=== PATIENT | male | born 1980 | race Caucasian/White ===

== ENCOUNTER 2016-11-30 15:13 | Emergency (ER) | payer SELFPAY ==
[~2016-11-30] VITALS: Ht 167.6 cm; Wt 80.0 kg
[2016-11-30 15:17] VITALS: BP 137/87; PULSE 96; RESP 20; TEMP 98.1; O2SAT 97
--- NOTE | 2016-11-30 17:23 | PD ---
HPI Chief Complaint: Skin Problem Time Seen by Provider: 17:23 Travel History International Travel<30 days: No Contact w/Intl Traveler<30days: No Traveled to known affect area: No History of Present Illness HPI 36-year-old male presents to the emergency department for evaluation of left groin abscess. Patient states that 2 days ago he noticed a bump to his left inner upper groin. States that it has gotten larger and more painful over the past 2 days. States that he now has an area of redness surrounding the bump. States that he had subjective fever last night. Denies any discharge or drainage from the site. Denies any scrotal pain, chills, nausea, vomiting, dysuria. Denies any medical conditions. No other complaints. PFSH Past Medical History Respiratory: Yes (asthma) Social History Alcohol Use: Yes Tobacco Use: Yes Allergies-Medications (Allergen,Severity, Reaction): Coded Allergies: No Known Allergies (Unverified , 11/30/16) Reported Meds & Prescriptions Reported Meds & Active Scripts Active Keflex (Cephalexin) 500 Mg Cap 500 Mg PO Q6H 10 Days Bactrim DS (Sulfamethoxazole-Trimethoprim) 800-160 Mg Tab 1 Tab PO BID 10 Days Tramadol (Tramadol HCl) 50 Mg Tab 50 Mg PO Q6H PRN Review of Systems Except as stated in HPI: all other systems reviewed are Neg Physical Exam Narrative GENERAL: Well-nourished and well-developed pleasant male patient in no acute distress who is nontoxic appearing. SKIN: Warm and dry. There is a 4 cm in diameter raised area of fluctuance and tenderness to palpation with a surrounding area of erythema approximately 15 cm down the left thigh. HEAD: Normocephalic and atraumatic. EYES: No injection, drainage, or hyphema noted. PERRLA. EOMI. ENT: No nasal drainage noted. Oropharynx is clear. NECK: Supple and the trachea is midline. CARDIOVASCULAR: Regular rate and rhythm. RESPIRATORY: Breath sounds are equal bilaterally with no accessory muscle use, wheezing, rhonchi, or crackles. GENITOURINARY: Circumcised. Testes descended bilaterally without evidence of rotation. No tenderness to palpation of the scrotum, no erythema or swelling of the scrotum. Groin abscess as described above. No urethral discharge. Performed in the presence of Juan JOYNER. MUSCULOSKELETAL: No obvious deformities, swelling, cyanosis, or ecchymosis is present throughout the upper and lower extremities. Patient has full range of motion without any signs of neurovascular compromise. NEUROLOGICAL: Awake, alert, and oriented. Normal speech and gait. Cranial nerves are grossly intact. Data Data Last Documented VS Vital Signs Date Time Temp Pulse Resp B/P Pulse Ox O2 Delivery O2 Flow Rate FiO2 11/30/16 15:17 98.1 96 20 137/87 97 Room Air Orders Wound Culture And Gram Stain (11/30/16 17:51) [facility] Medical Decision Making Medical Screen Exam Complete: Yes Emergency Medical Condition: Yes Differential Diagnosis Groin abscess versus cyst versus cellulitis Narrative Course 36-year-old male presents to the emergency department for evaluation of left groin abscess. Patient is afebrile, vital signs are stable. He has an abscess to his left groin with a surrounding area of cellulitis. The scrotum is not involved. I&D is performed, see procedure narrative. Patient is prescribed Keflex, Bactrim and pain medication. Discussed proper wound care techniques and when to return to the emergency department. Advised to follow-up with his PCP. Patient verbalizes understanding and agreement with treatment plan. Procedures Procedure Narrative After the risks and benefits were discussed the following procedure was performed: INCISION AND DRAINAGE OF ABSCESS: The area was prepped and was sterilely draped. A subcutaneous wheal of 1 % Xylocaine with epinephrine with a total number 8 mL was used to anesthetize the area. The area was properly anesthetized. A number 11 scalpel was used to make a 1.5 -cm incision across the area of the abscess. Purulence was expelled. Cultures were obtained. The abscess was drained an irrigated with normal saline. Quarter inch iodoform packing was placed in the wound. Sterile dressing applied. Patient advised to have packing removed in two days. Diagnosis Primary Impression: Groin abscess Additional Impression: Cellulitis Qualified Code: L03.116 - Cellulitis of left lower extremity Referrals: Primary Care Physician Patient Instructions: Abscess (ED), Cellulitis (ED), General Instructions Additional Instructions: Keep area clean and dry. Have packing removed in 2 days. Take medications as prescribed with food and a full glass of water. Do not take tramadol with alcohol or while driving. Follow-up with your Primary Care Physician. Return to the ED for any acute worsening of symptoms. Med/Other Pt SpecificInfo: Prescription(s) given Scripts Cephalexin (Keflex)500 Mg [id number] Mg PO Q6H 10 Days Ref 0 Prov:Hung Canas MD 11/30/16 Sulfamethoxazole-Trimethoprim (Bactrim DS)800-160 Mg Tab1 Tab PO BID 10 Days Ref 0 Prov:Hung Canas MD 11/30/16 Tramadol 50 Mg Tab50 Mg PO Q6H PRN (PAIN GREATER THAN 6) #12 TAB Ref 0 Prov:Hung Canas MD 11/30/16 Disposition: 01 DISCHARGE HOME Condition: Stable Maribell Gresham Nov 30, 2016 17:23
[2016-11-30] MEDS ORDERED: BACT800T5 PO (17:48)
[2016-11-30] MEDS ORDERED: TRAM50TA PO (17:48)
[2016-11-30] MEDS ORDERED: CEPH-460 PO (17:48)
== END 2016-11-30 18:03 | disposition home or self-care (01) ==
LOC: EDBD → NEPB 15:13
DX: L02.214 Cutaneous abscess of groin (principal); B95.62 Methicillin resistant Staphylococcus aureus infection as the cause of diseases classified elsewhere
CPT/HCPCS: 10061; 86403; 87070; 87186

== ENCOUNTER 2016-12-02 08:57 | Inpatient (IN) | payer SELFPAY ==
[2016-12-02] VITALS (8 sets, daily range): BP systolic 101–136; BP diastolic 58–79; PULSE 76–100; RESP 15–20; TEMP 98–98.3; O2SAT 95–100
[~2016-12-02] VITALS: Ht 170.2 cm; Wt 80.4 kg
[~2016-12-02 08:57] MED LIST: BACT800T5 PO; CEPH-460 PO; TRAM50TA PO
[2016-12-02] MEDS ORDERED: SODIUM CHLOR 0.9% 1000 ML INJ 1,000 ML IV ONE (09:30)
[2016-12-02] MEDS ORDERED: VANCOMYCIN INJ 1,250 MG in SODIUM CHLOR 0.9% 250 ML INJ 250 ML IV ONE (09:30)
[2016-12-02 09:56] LABS: AUTOMATED NEUTROPHIL # 7.4 TH/MM3 (1.8-7.7); EOSINOPHIL # 0.1 TH/MM3 (0-0.4); EOSINOPHIL % 0.7 % (0.0-4.0); HEMATOCRIT 35.4 % (39.0-51.0); HEMO FLAGS DIFF FINAL; LYMPH % 15.6 % (9.0-44.0); LYMPHOCYTE # 1.6 TH/MM3 (1.0-4.8); MEAN CORPUSCULAR HEMOGLOBIN 33.7 PG (27.0-34.0); MEAN CORPUSCULAR HGB CONC 34.4 % (32.0-36.0); MONO % 10.7 % (0.0-8.0); PLATELET COUNT 111 TH/MM3 (150-450); RED BLOOD COUNT 3.62 MIL/MM3 (4.50-5.90); RED CELL DISTRIBUTION WIDTH 13.9 % (11.6-17.2); WHITE BLOOD COUNT 10.1 TH/MM3 (4.0-11.0)
[2016-12-02 10:06] LABS: ALKALINE PHOSPHATASE 121 U/L (45-117)
[2016-12-02 10:20] LABS: ALT (GPT) 50 U/L (12-78); ANION GAP 5 MEQ/L (5-15); AST (GOT) 38 U/L (15-37); BICARBONATE 27.7 MEQ/L (21.0-32.0); BLOOD UREA NITROGEN 8 MG/DL (7-18); CHLORIDE 98 MEQ/L (98-107); GLOMERULAR FILTRATION RATE 86 ML/MIN (>89); SODIUM (NA) 131 MEQ/L (136-145)
[2016-12-02 10:21] LABS: POTASSIUM 3.9 MEQ/L (3.5-5.1)
--- NOTE | 2016-12-02 11:06 | RADRPT ---
EXAM DATE/TIME: 12/02/2016 09:55 [place] COMPARISON: No previous studies available for comparison. INDICATIONS : Left leg fluid collection. MEDICAL HISTORY : Asthma. SURGICAL HISTORY : ENCOUNTER: Initial ACUITY: 1 day PAIN SCORE: 8/10 LOCATION: Left groin. AREA EVALUATED: Left medial groin. FINDINGS: Sonographic evaluation of the left groin and upper thigh/buttocks shows diffuse edema involving the s ubcutaneous tissues. No abscess is observed. A wound is noted within the upper medial thigh/perineum. CONCLUSION: Diffuse edema with a wound but no abscess observed. Corwin Cook Jr., MD on December 02, 2016 at 11:00 Board Certified Radiologist. This report was verified electronically.
--- NOTE | 2016-12-02 11:26 | PD ---
HPI Chief Complaint: Skin Problem Time Seen by Provider: 09:17 Travel History International Travel<30 days: No Contact w/Intl Traveler<30days: No Traveled to known affect area: No History of Present Illness HPI This is a 36-year-old male who presents to the emergency department with a wound on his left groin that started as an abscess 4 days ago and has been increasing in size, constant, associated with pain and discomfort. He denies any fevers or chills. He was seen in the emergency department 2 days ago and had an incision and drainage performed. Cultures at that time grew MRSA. The patient [place] and has fresh and salt water exposure. He's been on Keflex and Bactrim for the past 2 days but he feels like the cellulitis is worsening. PFSH Past Medical History Medical History: Denies Significant Hx Diminished Hearing: No Respiratory: Yes (asthma) Past Surgical History Surgical History: No Previous Surgery Social History Alcohol Use: Yes Tobacco Use: Yes Substance Use: No Allergies-Medications (Allergen,Severity, Reaction): Coded Allergies: No Known Allergies (Unverified , 12/02/16) Reported Meds & Prescriptions Reported Meds & Active Scripts Active Keflex (Cephalexin) 500 Mg Cap 500 Mg PO Q6H 10 Days Bactrim DS (Sulfamethoxazole-Trimethoprim) 800-160 Mg Tab 1 Tab PO BID 10 Days Tramadol (Tramadol HCl) 50 Mg Tab 50 Mg PO Q6H PRN Review of Systems Except as stated in HPI: all other systems reviewed are Neg Physical Exam Narrative GENERAL:Well appearing, no acute distress SKIN: 16 x 10 cm area of erythema, induration and warmth in the left groin extending towards the perineum with tender lymphadenopathy in the left femoral region. Abscess packing was removed and there is some scant purulent drainage HEAD: Atraumatic. Normocephalic. EYES: Pupils equal and round. No injection or drainage. ENT: Moist mucous membranes NECK: Trachea midline. CARDIOVASCULAR: Regular rate and rhythm. No murmur appreciated. RESPIRATORY: Clear to auscultation. Breath sounds equal bilaterally. GASTROINTESTINAL: Abdomen soft, non-tender, nondistended. MUSCULOSKELETAL: No obvious deformities. NEUROLOGICAL: Awake and alert. No obvious cranial nerve deficits. Moving all extremities. PSYCHIATRIC: Appropriate mood and affect; insight and judgment normal. Data Data Last Documented VS Vital Signs Date Time Temp Pulse Resp B/P Pulse Ox O2 Delivery O2 Flow Rate FiO2 12/02/16 09:16 16 12/02/16 09:16 100 Room Air 12/02/16 08:59 98.0 100 136/79 Orders Complete Blood Count With Diff (12/02/16 09:22) Comprehensive Metabolic Panel (12/02/16 09:22) Lactic Acid Sepsis Protocol (12/02/16 09:22) Blood Culture (12/02/16 09:22) Wound Culture And Gram Stain (12/02/16 09:22) Blood Glucose (12/02/16 09:22) Ecg Monitoring (12/02/16 09:22) Iv Access Insert/Monitor (12/02/16:22) Oximetry (12/02/16:22) Oxygen Administration (12/02/16 09:22) Vancomycin Inj (Vancomycin Inj) (12/02/16 09:30) Sodium Chlor 0.9% 1000 Ml Inj (Ns 1000 M (12/02/16 09:30) Us Leg Soft Tissue (12/02/16 ) Labs Laboratory Tests Test 12/02/16 09:20 White Blood Count 10.1 TH/MM3 Red Blood Count 3.62 MIL/MM3 Hemoglobin 12.2 GM/DL Hematocrit 35.4 % Mean Corpuscular Volume 98.0 FL Mean Corpuscular Hemoglobin 33.7 PG Mean Corpuscular Hemoglobin 34.4 % Concent Red Cell Distribution Width 13.9 % Platelet Count 111 TH/MM3 Mean Platelet Volume 8.3 FL Neutrophils (%) (Auto) 73.0 % Lymphocytes (%) (Auto) 15.6 % Monocytes (%) (Auto) 10.7 % Eosinophils (%) (Auto) 0.7 % Basophils (%) (Auto) 0.0 % Neutrophils # (Auto) 7.4 TH/MM3 Lymphocytes # (Auto) 1.6 TH/MM3 Monocytes # (Auto) 1.1 TH/MM3 Eosinophils # (Auto) 0.1 TH/MM3 Basophils # (Auto) 0.0 TH/MM3 CBC Comment DIFF FINAL Differential Comment Sodium Level 131 MEQ/L Potassium Level 3.9 MEQ/L Chloride Level 98 MEQ/L Carbon Dioxide Level 27.7 MEQ/L Anion Gap 5 MEQ/L Blood Urea Nitrogen 8 MG/DL Creatinine 0.98 MG/DL Estimat Glomerular Filtration 86 ML/MIN Rate Random Glucose 119 MG/DL Lactic Acid Level 0.9 mmol/L Calcium Level 8.5 MG/DL Total Bilirubin 1.0 MG/DL Aspartate Amino Transf 38 U/L (AST/SGOT) Alanine Aminotransferase 50 U/L (ALT/SGPT) Alkaline Phosphatase 121 U/L Total Protein 8.1 GM/DL Albumin 3.2 GM/DL MDM Medical Decision Making Medical Screen Exam Complete: Yes Emergency Medical Condition: Yes Interpretation(s) Afebrile, mild tachycardia No leukocytosis Mild anemia Thrombocytopenia Electrolytes are reassuring Lactic acidosis 0.9 Differential Diagnosis Cellulitis, sepsis, abscess, Earl's gangrene Narrative Course This is a 36-year-old male who presents to the emergency department with cellulitis and abscess formation in his left groin which was incised and drained 2 days ago. He returns today because his cellulitis is worsening despite taking antibiotics. He has no fever and no leukocytosis however his cellulitis appears to be spreading per his description despite antibiotic therapy. Wound cultures grew MRSA on visit. Patient was placed on a monitor and an IV was established. Labs were obtained and he was given a dose of IV vancomycin. He will be admitted for cellulitis in the setting of failed outpatient therapy. Diagnosis Primary Impression: Cellulitis Qualified Code: L03.116 - Cellulitis of left lower extremity Admitting Information Admitting Physician Requests: Admit Lesly Barboza MD Dec 02, 2016 11:26
[2016-12-02] MEDS ORDERED: ACETAMINOPHEN/HYDROcodone 325 MG/5 MG TAB PO ONE (11:30)
[2016-12-02] MEDS ORDERED: BISACODYL 10 MG SUPP PR PRN (11:45)
[2016-12-02] MEDS ORDERED: PROCHLORPERAZINE 25 MG SUPP PR PRN (11:45)
[2016-12-02] MEDS ORDERED: SODIUM CHLORIDE 0.9% FLUSH 5 ML FLUSH FLUSH PRN (11:45)
[2016-12-02] MEDS ORDERED: ONDANSETRON HCL 4 MG/2 ML VIAL IVP PRN (11:45)
[2016-12-02] MEDS ORDERED: Vancomycin Consult Pharmacy 1 EA OTHER SCH (11:45)
[2016-12-02] MEDS ORDERED: ACETAMINOPHEN 325 MG TAB PO PRN (11:45)
[2016-12-02] MEDS ORDERED: MAGNESIUM HYDROXIDE SUSP 30 ML CUP PO PRN (11:45)
[2016-12-02] MEDS: ENOXAPARIN SODIUM 40 MG/0.4 ML SYRINGE SQ SCH (12:38)
[2016-12-02] MEDS ORDERED: NALOXONE HCL 0.4 MG/ML AMP IV PRN (15:30)
[2016-12-02] MEDS ORDERED: ACETAMINOPHEN/HYDROcodone 325 MG/5 MG TAB PO PRN (16:00)
--- NOTE | 2016-12-02 16:04 | HHI.HP ---
[facility] Non-Staff Admission Diagnosis cellulitis Diagnoses: Chief Complaint: cellulitis getting worse dispite treatment Travel History International Travel<30 Days: No Contact w/Intl Traveler <30 Da: No Traveled to Known Affected Are: No History of Present Illness 36-year-old male otherwise healthy who presents to the emergency department with a wound on his left groin that started as an abscess 4 days ago and has been increasing in size, constant, associated with pain and discomfort. He denies any fevers or chills. He was seen in the emergency department 2 days ago and had an incision and drainage performed. Cultures at that time grew MRSA. The patient [place] and has fresh and salt water exposure. He's been on Keflex and Bactrim for the past 2 days but he feels like the cellulitis is worsening. Says redness, swelling and pain is increasing progressively. No feevr or chills. He was compliants taking antibiotics and pain meds. Review of Systems 12 system ROS reviewed and negative except as mentioned in HPI Past Family Social History Past Medical History Healthy, no chronic medical problems, no diabetes Has a h/o pancreatitis likely EtOH related. Past Surgical History None Reported Medications Reported Meds & Active Scripts Active Keflex (Cephalexin) 500 Mg Cap 500 Mg PO Q6H 10 Days Bactrim DS (Sulfamethoxazole-Trimethoprim) 800-160 Mg Tab 1 Tab PO BID 10 Days Tramadol (Tramadol HCl) 50 Mg Tab 50 Mg PO Q6H PRN Current Medications Vancomycin HCl 1250 mg/Sodium Chloride 262.5 ml @ 250 mls/hr ONCE ONCE IV Last administered on 12/02/16 10:01; Start 12/02/16 at 09:30; Stop 12/02/16 at 10:32; Status DC Sodium Chloride (NS 1000 ml Inj) 1,000 ml @ 999 mls/hr BOLUS ONCE IV Last administered on 12/02/16 09:41; Start 12/02/16 at 09:30; Stop 12/02/16 at 10:30 ; Status DC Acetaminophen/ Hydrocodone Bitart ([place] 5-325 Mg) 1 tab ONCE ONCE PO Last administered on 12/02/16t 11:45; Start 12/02/16 at 11:30; Stop 12/02/16 at 11:31 ; Status DC IV Flush (NS Flush) 2 ml UNSCH PRN FLUSH FLUSH AFTER USING IV ACCESS; Start at 11:45 IV Flush (NS Flush) 2 ml BID FLUSH ; Start 12/02/16 at 21:00 Acetaminophen (Tylenol) 650 mg Q4H PRN PO TEMP > 100.4 Last administered on t 14:58; Start 12/02/16 at 11:45 Ondansetron HCl (Zofran Inj) 4 mg Q6H PRN IVP NAUSEA OR VOMITING; Start at 11:45 Prochlorperazine (Compazine Supp) 25 mg Q12H PRN NM NAUSEA OR VOMITING; Start 12/02/16 at 11:45 Bisacodyl (Dulcolax Supp) 10 mg DAILY PRN NM CONSTIPATION; Start 12/02/16 at 11 :45 Magnesium Hydroxide (Milk Of Magnesia Liq) 30 ml Q12H PRN PO CONSTIPATION; Start 12/02/16 at 11:45 Zolpidem Tartrate (Ambien) 5 mg HS PRN PO INSOMNIA; Start 12/02/16 at 11:45 Enoxaparin Sodium 40 mg 40 mg Q24H SQ ; Start 12/02/16 at 13:00 Vancomycin HCl 1000 mg/Sodium Chloride 250 ml @ 250 mls/hr Q12H IV ; Start at 22:00; Stop 12/02/16 at 22:00; Status DC Pharmacy Profile Note 0 ml @ 0 mls/hr UNSCH OTHER ; Start 12/02/16 at 11:45 Vancomycin HCl/ Sodium Chloride (Vancomycin Inj/ NS 250 ml Inj) 262.5 ml @ 250 mls/hr Q12H IV ; Start 12/02/16 at 21:00 Miscellaneous Information SPECIFIC LAB TO BE DRAWN:VANCOMYCIN TROUGH DATE TO... ONCE ONCE XX ; Start 12/04/16 at 08:45; Stop 12/04/16 at 08:46 Acetaminophen/ Hydrocodone Bitart ([place] 5-325 Mg) 1 tab Q4H PRN PO PAIN SCALE 3 TO 5; Start 12/02/16 at 16:00 Acetaminophen/ Hydrocodone Bitart ([place] 10-325 Mg) 1 tab Q4H PRN PO PAIN SCALE 6 TO 10; Start 12/02/16 at 16:00 Hydromorphone HCl (Dilaudid Pf Inj) 1 mg Q3H PRN IV BREAKTHROUGH PAIN; Start at 15:30 Naloxone HCl (Narcan Inj) 0.4 mg UNSCH PRN IV SEE LABEL COMMENTS; Start at 15:30 Allergies: Coded Allergies: No Known Allergies (Unverified , 12/02/16) Family History healthy family Social History EtOH use 6 beers daily Physical Exam Vital Signs Vital Signs Date Time Temp Pulse Resp B/P Pulse Ox O2 Delivery O2 Flow Rate FiO2 12/02/16 13:45 98.3 76 20 108/67 98 12/02/16 11:49 98 21 12/02/16 11:46 87 15 120/78 100 Room Air 12/02/16 09:16 16 12/02/16 09:16 100 Room Air 12/02/16 09:16 16 100 Room Air 12/02/16 08:59 98.0 100 20 136/79 97 Room Air Physical Exam GENERAL: This is a young male well-nourished, well-developed patient, in no apparent distress. SKIN: Extended Erythema and edema on left groin extending mid inner thigh, warm and painful to palpation. Cool and dry. HEAD: Atraumatic. Normocephalic. No temporal or scalp tenderness. EYES: Pupils equal round and reactive. Extraocular motions intact. No scleral icterus. No injection or drainage. ENT: Nose without bleeding, purulent drainage or septal hematoma. Throat without erythema, tonsillar hypertrophy or exudate. Uvula midline. Airway patent. NECK: Trachea midline. No JVD or lymphadenopathy. Supple, nontender, no meningeal signs. CARDIOVASCULAR: Regular rate and rhythm without murmurs, gallops, or rubs. RESPIRATORY: Clear to auscultation. Breath sounds equal bilaterally. No wheezes , rales, or rhonchi. GASTROINTESTINAL: Abdomen soft, non-tender, nondistended. No hepato-splenomegaly , or palpable masses. No guarding. MUSCULOSKELETAL: Extremities without clubbing, cyanosis, or edema. No joint tenderness, effusion, or edema noted. No calf tenderness. Negative Homans sign bilaterally. NEUROLOGICAL: Awake and alert. Cranial nerves II through XII intact. Motor and sensory grossly within normal limits. Five out of 5 muscle strength in all muscle groups. Normal speech. Laboratory Laboratory Tests Test 12/02/16 09:20 White Blood Count 10.1 Red Blood Count 3.62 Hemoglobin 12.2 Hematocrit 35.4 Mean Corpuscular Volume 98.0 Mean Corpuscular Hemoglobin 33.7 Mean Corpuscular Hemoglobin 34.4 Concent Red Cell Distribution Width 13.9 Platelet Count 111 Mean Platelet Volume 8.3 Neutrophils (%) (Auto) 73.0 Lymphocytes (%) (Auto) 15.6 Monocytes (%) (Auto) 10.7 Eosinophils (%) (Auto) 0.7 Basophils (%) (Auto) 0.0 Neutrophils # (Auto) 7.4 Lymphocytes # (Auto) 1.6 Monocytes # (Auto) 1.1 Eosinophils # (Auto) 0.1 Basophils # (Auto) 0.0 CBC Comment DIFF FINAL Differential Comment Sodium Level 131 Potassium Level 3.9 Chloride Level 98 Carbon Dioxide Level 27.7 Anion Gap 5 Blood Urea Nitrogen 8 Creatinine 0.98 Estimat Glomerular Filtration 86 Rate Random Glucose 119 Lactic Acid Level 0.9 Calcium Level 8.5 Total Bilirubin 1.0 Aspartate Amino Transf 38 (AST/SGOT) Alanine Aminotransferase 50 (ALT/SGPT) Alkaline Phosphatase 121 Total Protein 8.1 Albumin 3.2 Date/Time Procedure Status Source Growth 12/02/16 09:25 Aerobic Blood Culture Received Blood Peripheral Pending 12/02/16 09:25 Anaerobic Blood Culture Received Blood Peripheral Pending 12/02/16 09:20 Gram Stain Received Wound Groin Pending 12/02/16 09:20 Wound Culture Received Wound Groin Pending Result Diagram: 12/02/1620 12/02/1620 Imaging Last Impressions Lower Extremity Ultrasound 12/02/16 0000 Signed Impressions: Service Date/Time: Friday, December 02, 2016 09:55 - CONCLUSION: Diffuse edema with a wound but no abscess observed. Corwin Cook Jr., MD Assessment and Plan Assessment and Plan 36 yo male with cellulitis left innerthigh/groin Worsening cellulitis of the left groin/inner thigh with failed OP treatment with keflex and bactrim. Wound cultures 11/30 with MRSA Repeat wound cultures today Start IV vancomycin. Pharmacy consult for vanco Pain meds per pain scale. Monitor VS Tachycardic, but doesn't meet sepsis criteria DVT ppx with lovenox Code Status full Discussed Condition With patient. nurse, ED physician Physician Certification 2 Midnight Certification Type: Admission for Inpatient Services Order for Inpatient Services The services are ordered in accordance with Medicare regulations or non- Medicare payer requirements, as applicable. In the case of services not specified as inpatient-only, they are appropriately provided as inpatient services in accordance with the 2-midnight benchmark. Estimated LOS (days): 3 days is the estimated time the patient will need to remain in the hospital, assuming treatment plan goals are met and no additional complications. Post-Hospital Plan: Home Annia Murray MD Dec 02, 2016 16:04
[2016-12-02] MEDS: ACETAMINOPHEN/HYDROcodone 325 MG/10 MG TAB PO PRN ×2 (16:05→20:30)
[2016-12-02] MEDS: VANCOMYCIN INJ 1,250 MG in SODIUM CHLOR 0.9% 250 ML INJ 250 ML IV SCH (20:23)
[2016-12-02] MEDS: SODIUM CHLORIDE 0.9% FLUSH 5 ML FLUSH FLUSH SCH (20:26)
[2016-12-02] MEDS ORDERED: VANCOMYCIN INJ 1,000 MG in SODIUM CHLOR 0.9% 250 ML INJ 250 ML IV SCH (22:00)
[2016-12-03] MEDS: ACETAMINOPHEN/HYDROcodone 325 MG/10 MG TAB PO PRN ×5 (02:18→21:48)
[2016-12-03 04:37] VITALS: BP 106/62; PULSE 74; RESP 16; TEMP 98.4; O2SAT 98
[2016-12-03 08:00] VITALS: BP 114/62; PULSE 78; RESP 20; TEMP 98.3; O2SAT 97
[2016-12-03 08:32] LABS: AUTOMATED NEUTROPHIL # 4.3 TH/MM3 (1.8-7.7); BASOPHIL % 0.1 % (0.0-2.0); EOSINOPHIL # 0.2 TH/MM3 (0-0.4); EOSINOPHIL % 2.3 % (0.0-4.0); HEMATOCRIT 30.7 % (39.0-51.0); HEMO FLAGS DIFF FINAL; LYMPHOCYTE # 1.4 TH/MM3 (1.0-4.8); MEAN CORPUSCULAR HEMOGLOBIN 34.3 PG (27.0-34.0); MONO % 11.7 % (0.0-8.0); NEUT % 64.9 % (16.0-70.0); PLATELET COUNT 131 TH/MM3 (150-450); RED BLOOD COUNT 3.14 MIL/MM3 (4.50-5.90); RED CELL DISTRIBUTION WIDTH 13.6 % (11.6-17.2); WHITE BLOOD COUNT 6.6 TH/MM3 (4.0-11.0)
[2016-12-03 08:53] LABS: BICARBONATE 28.3 MEQ/L (21.0-32.0); POTASSIUM 4.4 MEQ/L (3.5-5.1)
[2016-12-03] MEDS: SODIUM CHLORIDE 0.9% FLUSH 5 ML FLUSH FLUSH SCH ×2 (10:09→21:48)
[2016-12-03] MEDS: VANCOMYCIN INJ 1,250 MG in SODIUM CHLOR 0.9% 250 ML INJ 250 ML IV SCH ×2 (10:10→21:48)
--- NOTE | 2016-12-03 10:52 | HHI.PR ---
Subjective Remarks Says edema and erythema improving. No fever or chills. No n/v/d/c. Pain is controlled by meds. Objective Vitals Vital Signs Date Time Temp Pulse Resp B/P Pulse Ox O2 Delivery O2 Flow Rate FiO2 12/03/16 08:00 2 12/03/16 04:37 98.4 74 16 106/62 98 12/02/16 23:20 98.3 78 16 107/63 97 12/02/16 19:57 98.3 78 16 101/58 95 12/02/16 16:00 98.3 79 20 110/64 98 12/02/16 13:45 98.3 76 20 108/67 98 12/02/16 11:49 98 21 12/02/16 11:46 87 15 120/78 100 Room Air I/O 12/02/16 12/02/16 12/02/16 12/03/16 12/03/16 12/03/16 07:00 15:00 23:00 07:00 15:00 23:00 Intake Total 480 ml 480 ml Output Total 750 ml 850 ml Balance -270 ml -370 ml Intake Oral 480 ml 480 ml Output Urine Total 750 ml 850 ml # Bowel Movements 0 0 Result Diagram: 12/03/16 0648 12/03/16 0648 Imaging Last Impressions Lower Extremity Ultrasound 12/02/16 0000 Signed Impressions: Service Date/Time: Friday, December 02, 2016 09:55 - CONCLUSION: Diffuse edema with a wound but no abscess observed. Corwin Cook Jr., MD Objective Remarks GENERAL: This is a young male well-nourished, well-developed patient, in no apparent distress. SKIN: Extended Erythema and edema on left groin extending mid inner thigh improving, warm and painful to palpation. Cool and dry. HEAD: Atraumatic. Normocephalic. No temporal or scalp tenderness. EYES: Pupils equal round and reactive. Extraocular motions intact. No scleral icterus. No injection or drainage. ENT: Nose without bleeding, purulent drainage or septal hematoma. Throat without erythema, tonsillar hypertrophy or exudate. Uvula midline. Airway patent. NECK: Trachea midline. No JVD or lymphadenopathy. Supple, nontender, no meningeal signs. CARDIOVASCULAR: Regular rate and rhythm without murmurs, gallops, or rubs. RESPIRATORY: Clear to auscultation. Breath sounds equal bilaterally. No wheezes , rales, or rhonchi. GASTROINTESTINAL: Abdomen soft, non-tender, nondistended. No hepato-splenomegaly , or palpable masses. No guarding. MUSCULOSKELETAL: Extremities without clubbing, cyanosis, or edema. No joint tenderness, effusion, or edema noted. No calf tenderness. Negative Homans sign bilaterally. NEUROLOGICAL: Awake and alert. Cranial nerves II through XII intact. Motor and sensory grossly within normal limits. Five out of 5 muscle strength in all muscle groups. Normal speech. A/P Assessment and Plan 36 yo male with cellulitis left innerthigh/groin Worsening cellulitis of the left groin/inner thigh with failed OP treatment with keflex and bactrim. Wound cultures 11/30 with MRSA Repeat wound cultures 12/02 NTD Blood Cx 12/02 NTD Continue IV vancomycin. Pharmacy consult for vanco Pain meds per pain scale. Monitor VS Tachycardic oo admission, but doesn't meet sepsis criteria. tachycardia resolved. DVT ppx with lovenox Code Status full Discussed Condition With patient, nurse Annia Murray MD Dec 03, 2016 10:52
[2016-12-03 12:00] VITALS: BP 116/56; PULSE 73; RESP 20; TEMP 98.7; O2SAT 97
[2016-12-03] MEDS: ENOXAPARIN SODIUM 40 MG/0.4 ML SYRINGE SQ SCH (15:17)
[2016-12-03 16:00] VITALS: BP 121/67; PULSE 80; RESP 18; TEMP 98.4; O2SAT 98
[2016-12-03 20:00] VITALS: BP 119/58; PULSE 87; RESP 16; TEMP 98.6; O2SAT 96
[2016-12-03 23:38] VITALS: BP 108/66; PULSE 74; RESP 18; TEMP 98.7; O2SAT 95
[2016-12-03] MEDS: HYDROmorphone HCL PF 1 MG/ML VIAL IV PRN (23:41)
[2016-12-04] MEDS: ACETAMINOPHEN/HYDROcodone 325 MG/10 MG TAB PO PRN ×5 (02:28→20:48)
[2016-12-04] MEDS: HYDROmorphone HCL PF 1 MG/ML VIAL IV PRN ×3 (04:13→22:48)
[2016-12-04 04:45] VITALS: BP 95/55; PULSE 60; RESP 16; TEMP 97.9; O2SAT 95
[2016-12-04 08:00] VITALS: BP 113/59; PULSE 72; RESP 22; TEMP 97.9; O2SAT 96
[2016-12-04] MEDS ORDERED: PHARMACY ORDERED LAB XX ONE (08:45)
[2016-12-04] MEDS: SODIUM CHLORIDE 0.9% FLUSH 5 ML FLUSH FLUSH SCH ×2 (09:00→21:00)
[2016-12-04] MEDS: VANCOMYCIN INJ 1,250 MG in SODIUM CHLOR 0.9% 250 ML INJ 250 ML IV SCH ×2 (10:13→17:05)
[2016-12-04 12:00] VITALS: BP 116/60; PULSE 70; RESP 20; TEMP 98.6; O2SAT 97
[2016-12-04] MEDS: ENOXAPARIN SODIUM 40 MG/0.4 ML SYRINGE SQ SCH (13:58)
--- NOTE | 2016-12-04 15:59 | HHI.PR ---
Subjective Remarks Seen earlier today. Patient reports he did squise his wound last night and had pain thereafter. There is no drainage but is induration. No fever or chills. Eruthema is improving some. Objective Vitals Vital Signs Date Time Temp Pulse Resp B/P Pulse Ox O2 Delivery O2 Flow Rate FiO2 12/04/16 12:00 98.6 70 20 116/60 97 12/04/16 08:00 97.9 72 22 113/59 96 12/04/16 07:40 18 12/04/16 04:45 97.9 60 16 95/55 95 12/03/16 23:38 98.7 74 18 108/66 95 12/03/16 20:00 98.6 87 16 119/58 96 12/03/16 16:00 98.4 80 18 121/67 98 I/O 12/03/16 12/03/16 12/03/16 12/04/16 12/04/16 12/04/16 07:00 15:00 23:00 07:00 15:00 23:00 Intake Total 480 ml 1440 ml 252 ml 806 ml Output Total 850 ml 1775 ml 0 ml Balance -370 ml -335 ml 252 ml 806 ml Intake Oral 480 ml 1440 ml 800 ml IV Total 252 ml 6 ml Output Urine Total 850 ml 1775 ml Stool Total 0 ml # Voids 3 # Bowel Movements 0 0 0 Result Diagram: 12/03/16 0648 12/03/16 0648 Imaging Last Impressions Lower Extremity Ultrasound 12/02/16 0000 Signed Impressions: Service Date/Time: Friday, December 02, 2016 09:55 - CONCLUSION: Diffuse edema with a wound but no abscess observed. Corwin Cook Jr., MD Objective Remarks GENERAL: This is a young male well-nourished, well-developed patient, in no apparent distress. SKIN: Extended Erythema and edema on left groin extending mid inner thigh improving, warm and painful to palpation. Cool and dry. HEAD: Atraumatic. Normocephalic. No temporal or scalp tenderness. EYES: Pupils equal round and reactive. Extraocular motions intact. No scleral icterus. No injection or drainage. ENT: Nose without bleeding, purulent drainage or septal hematoma. Throat without erythema, tonsillar hypertrophy or exudate. Uvula midline. Airway patent. NECK: Trachea midline. No JVD or lymphadenopathy. Supple, nontender, no meningeal signs. CARDIOVASCULAR: Regular rate and rhythm without murmurs, gallops, or rubs. RESPIRATORY: Clear to auscultation. Breath sounds equal bilaterally. No wheezes , rales, or rhonchi. GASTROINTESTINAL: Abdomen soft, non-tender, nondistended. No hepato-splenomegaly , or palpable masses. No guarding. MUSCULOSKELETAL: Extremities without clubbing, cyanosis, or edema. No joint tenderness, effusion, or edema noted. No calf tenderness. Negative Homans sign bilaterally. NEUROLOGICAL: Awake and alert. Cranial nerves II through XII intact. Motor and sensory grossly within normal limits. Five out of 5 muscle strength in all muscle groups. Normal speech. A/P Assessment and Plan 36 yo male with cellulitis left inner thigh/groin Worsening cellulitis of the left groin/inner thigh with failed OP treatment with keflex and bactrim. Wound cultures 11/30 with MRSA Repeat wound cultures 12/02 with MRSA Blood Cx 12/02 NTD Continue IV vancomycin. Pharmacy consult for vanco Pain meds per pain scale. Monitor VS Tachycardic on admission, but doesn't meet sepsis criteria. Tachycardia resolved. DVT ppx with lovenox Code Status full Discussed Condition With patient, nurse Annia Murray MD Dec 04, 2016 15:59
[2016-12-04 16:00] VITALS: BP 107/63; PULSE 71; RESP 18; TEMP 98.4; O2SAT 94
[2016-12-04 20:00] VITALS: BP 115/71; PULSE 76; RESP 16; TEMP 98.3; O2SAT 98
[2016-12-05] VITALS (7 sets, daily range): BP systolic 94–125; BP diastolic 52–69; PULSE 64–75; RESP 17–20; TEMP 97.9–98.5; O2SAT 96–98
[2016-12-05] MEDS: VANCOMYCIN INJ 1,250 MG in SODIUM CHLOR 0.9% 250 ML INJ 250 ML IV SCH ×3 (00:40→17:09)
[2016-12-05] MEDS: ACETAMINOPHEN/HYDROcodone 325 MG/10 MG TAB PO PRN ×4 (00:52→17:08)
[2016-12-05] MEDS: HYDROmorphone HCL PF 1 MG/ML VIAL IV PRN ×4 (03:46→19:53)
[2016-12-05] MEDS ORDERED: PHARMACY ORDERED LAB XX ONE (08:45)
[2016-12-05] MEDS: SODIUM CHLORIDE 0.9% FLUSH 5 ML FLUSH FLUSH SCH ×2 (09:00→19:52)
--- NOTE | 2016-12-05 12:13 | HHI.PR ---
Subjective Remarks Patient in nad. No n/v/d/c. Says redness is improving however there is still painful and also in the groin region is still very hard. no fever or chills. Objective Vitals Vital Signs Date Time Temp Pulse Resp B/P Pulse Ox O2 Delivery O2 Flow Rate FiO2 12/05/16 08:00 98.4 74 18 101/58 98 12/05/16 04:46 18 12/05/16 04:00 97.9 68 20 118/69 96 12/05/16 02:00 18 12/05/16 00:00 98.5 75 20 115/63 97 12/04/16 20:00 98.3 76 16 115/71 98 12/04/16 16:00 98.4 71 18 107/63 94 I/O 12/04/16 12/04/16 12/04/16 12/05/16 12/05/16 12/05/16 07:00 15:00 23:00 07:00 15:00 23:00 Intake Total 806 ml 1440 ml 980 ml 1080 ml Output Total 0 ml 1450 ml 675 ml 1200 ml Balance 806 ml -10 ml 305 ml -120 ml Intake Oral 800 ml 1440 ml 480 ml 1080 ml IV Total 6 ml 500 ml Output Urine Total 1450 ml 675 ml 1200 ml Stool Total 0 ml # Voids 3 # Bowel Movements 0 1 1 Result Diagram: 12/03/16 0648 12/03/16 0648 Imaging Last Impressions Lower Extremity Ultrasound 12/02/16 0000 Signed Impressions: Service Date/Time: Friday, December 02, 2016 09:55 - CONCLUSION: Diffuse edema with a wound but no abscess observed. Corwin Cook Jr., MD Objective Remarks GENERAL: This is a young male well-nourished, well-developed patient, in no apparent distress. SKIN: Extended edema on left groin extending mid inner thigh improving, warm and painful to palpation. Erythema improving. There is a large induration in the groin with surrounding edema and erythema, no fluctuance. Cool and dry. HEAD: Atraumatic. Normocephalic. No temporal or scalp tenderness. EYES: Pupils equal round and reactive. Extraocular motions intact. No scleral icterus. No injection or drainage. ENT: Nose without bleeding, purulent drainage or septal hematoma. Throat without erythema, tonsillar hypertrophy or exudate. Uvula midline. Airway patent. NECK: Trachea midline. No JVD or lymphadenopathy. Supple, nontender, no meningeal signs. CARDIOVASCULAR: Regular rate and rhythm without murmurs, gallops, or rubs. RESPIRATORY: Clear to auscultation. Breath sounds equal bilaterally. No wheezes , rales, or rhonchi. GASTROINTESTINAL: Abdomen soft, non-tender, nondistended. No hepato-splenomegaly , or palpable masses. No guarding. MUSCULOSKELETAL: Extremities without clubbing, cyanosis, or edema. No joint tenderness, effusion, or edema noted. No calf tenderness. Negative Homans sign bilaterally. NEUROLOGICAL: Awake and alert. Cranial nerves II through XII intact. Motor and sensory grossly within normal limits. Five out of 5 muscle strength in all muscle groups. Normal speech. A/P Assessment and Plan 36 yo male with cellulitis left inner thigh/groin Worsening cellulitis of the left groin/inner thigh with failed OP treatment with keflex and bactrim. Wound cultures 11/30 with MRSA Repeat wound cultures 12/02 with MRSA Blood Cx 12/02 NTD Continue IV vancomycin. Pharmacy consult for vanco Pain meds per pain scale. Monitor VS Tachycardic on admission, but doesn't meet sepsis criteria. Tachycardia resolved. Still with large induration in the groin area, erythema inproving no area of fluctuation. Says he has some drainage from the wound. Will monitor and if fluctuance will do US and consult gen surgery for I&D DVT ppx with lovenox Code Status full Discussed Condition With patient, nurse Annia Murray MD Dec 05, 2016 12:12
[2016-12-05] MEDS: ENOXAPARIN SODIUM 40 MG/0.4 ML SYRINGE SQ SCH (13:00)
[2016-12-05] MEDS: ZOLPIDEM TARTRATE 5 MG TAB PO PRN (20:53)
[2016-12-06] VITALS: BP 101/60; PULSE 64; RESP 16; TEMP 98.1; O2SAT 93
[2016-12-06] MEDS: VANCOMYCIN INJ 1,250 MG in SODIUM CHLOR 0.9% 250 ML INJ 250 ML IV SCH ×3 (00:32→17:46)
[2016-12-06] MEDS: ACETAMINOPHEN/HYDROcodone 325 MG/10 MG TAB PO PRN ×4 (00:32→17:46)
[2016-12-06] MEDS: HYDROmorphone HCL PF 1 MG/ML VIAL IV PRN ×2 (03:07→19:57)
[2016-12-06 04:00] VITALS: BP 116/60; PULSE 61; RESP 17; TEMP 98.4; O2SAT 95
[2016-12-06 08:00] VITALS: BP 118/77; PULSE 70; RESP 20; TEMP 97.9; O2SAT 95
[2016-12-06] MEDS: SODIUM CHLORIDE 0.9% FLUSH 5 ML FLUSH FLUSH SCH ×2 (09:12→19:58)
[2016-12-06] MEDS: ENOXAPARIN SODIUM 40 MG/0.4 ML SYRINGE SQ SCH (11:44)
[2016-12-06 12:00] VITALS: BP 111/68; PULSE 64; RESP 20; TEMP 98.1; O2SAT 94
--- NOTE | 2016-12-06 13:13 | HHI.PR ---
Subjective Remarks Patient in bed says erythema is improving, however still with painful induration at the groin. No feever or chills. No n/v/. Objective Vitals Vital Signs Date Time Temp Pulse Resp B/P Pulse Ox O2 Delivery O2 Flow Rate FiO2 12/06/16 12:00 98.1 64 20 111/68 94 12/06/16 08:00 97.9 70 20 118/77 95 12/06/16 04:00 98.4 61 17 116/60 95 12/06/16 00:00 98.1 64 16 101/60 93 12/05/16 22:36 64 103/64 12/05/16 20:00 98.1 72 17 94/52 96 12/05/16 16:00 98.2 69 18 125/67 97 I/O 12/05/16 12/05/16 12/05/16 12/06/16 12/06/16 12/06/16 07:00 15:00 23:00 07:00 15:00 23:00 Intake Total 1080 ml 960 ml 480 ml 320 ml Output Total 1200 ml 1000 ml 900 ml Balance -120 ml -40 ml -420 ml 320 ml Intake Oral 1080 ml 960 ml 480 ml 320 ml Output Urine Total 1200 ml 1000 ml 900 ml # Voids 3 # Bowel Movements 1 1 1 Result Diagram: 12/03/16 0648 12/03/16 0648 Imaging Last Impressions Lower Extremity Ultrasound 12/02/16 0000 Signed Impressions: Service Date/Time: Friday, December 02, 2016 09:55 - CONCLUSION: Diffuse edema with a wound but no abscess observed. Corwin Cook Jr., MD Objective Remarks GENERAL: This is a young male well-nourished, well-developed patient, in no apparent distress. SKIN: Extended edema on left groin extending mid inner thigh improving, warm and painful to palpation. Erythema improving. There is a large induration in the groin with surrounding edema and erythema, no fluctuance. Cool and dry. HEAD: Atraumatic. Normocephalic. No temporal or scalp tenderness. EYES: Pupils equal round and reactive. Extraocular motions intact. No scleral icterus. No injection or drainage. ENT: Nose without bleeding, purulent drainage or septal hematoma. Throat without erythema, tonsillar hypertrophy or exudate. Uvula midline. Airway patent. NECK: Trachea midline. No JVD or lymphadenopathy. Supple, nontender, no meningeal signs. CARDIOVASCULAR: Regular rate and rhythm without murmurs, gallops, or rubs. RESPIRATORY: Clear to auscultation. Breath sounds equal bilaterally. No wheezes , rales, or rhonchi. GASTROINTESTINAL: Abdomen soft, non-tender, nondistended. No hepato-splenomegaly , or palpable masses. No guarding. MUSCULOSKELETAL: Extremities without clubbing, cyanosis, or edema. No joint tenderness, effusion, or edema noted. No calf tenderness. Negative Homans sign bilaterally. NEUROLOGICAL: Awake and alert. Cranial nerves II through XII intact. Motor and sensory grossly within normal limits. Five out of 5 muscle strength in all muscle groups. Normal speech. A/P Assessment and Plan 36 yo male with cellulitis left inner thigh/groin Worsening cellulitis of the left groin/inner thigh with failed OP treatment with keflex and bactrim. Wound cultures 11/30 with MRSA Repeat wound cultures 12/02 with MRSA Blood Cx 12/02 NTD Continue IV vancomycin. Pharmacy consult for vanco Pain meds per pain scale. Monitor VS Tachycardic on admission, but doesn't meet sepsis criteria. Tachycardia resolved. Still with large induration in the groin area, erythema improving no area of fluctuation. Says he has some drainage from the wound. Will monitor and if fluctuance will do US and consult gen surgery for I&D DVT ppx with lovenox Code Status full Discussed Condition With patient, nurse Annia Murray MD Dec 06, 2016 13:13
[2016-12-06 16:00] VITALS: BP 100/60; PULSE 66; RESP 22; TEMP 98.1; O2SAT 95
[2016-12-06 20:00] VITALS: BP 109/68; PULSE 78; RESP 18; TEMP 98; O2SAT 95
--- NOTE | 2016-12-06 21:39 | RADRPT ---
EXAM DATE/TIME: 12/06/2016 20:49 [facility] COMPARISON: US LEG LEFT SOFT TISSUE, December 02, 2016, 9:55. INDICATIONS : Palpable mass. MEDICAL HISTORY : Asthma. MRSA. SURGICAL HISTORY : None. ENCOUNTER: Subsequent ACUITY: 1 week PAIN SCORE: 4/10 LOCATION: Left groin. AREA EVALUATED: Left groin. FINDINGS: MASSES: None. FLUID COLLECTIONS: None. OTHER: Diffuse edema within the left groin with increased vascularity. CONCLUSION: Diffuse edema in the left groin. No fluid collection. Angel Teresa MD on December 06, 2016 at 21:36 Board Certified Radiologist. This report was verified electronically.
[2016-12-07] VITALS: BP 105/71; PULSE 66; RESP 17; TEMP 98.2; O2SAT 96
[2016-12-07] MEDS: VANCOMYCIN INJ 1,250 MG in SODIUM CHLOR 0.9% 250 ML INJ 250 ML IV SCH ×2 (00:06→10:02)
[2016-12-07] MEDS: ACETAMINOPHEN/HYDROcodone 325 MG/10 MG TAB PO PRN ×2 (00:07→09:51)
[2016-12-07] MEDS: ZOLPIDEM TARTRATE 5 MG TAB PO PRN (01:27)
[2016-12-07 04:00] VITALS: BP 110/68; PULSE 74; RESP 18; TEMP 98.3; O2SAT 95
[2016-12-07 08:00] VITALS: BP 121/73; PULSE 72; RESP 18; TEMP 98.3; O2SAT 97
[2016-12-07] MEDS ORDERED: CLIN1CAP6 PO (09:08)
--- NOTE | 2016-12-07 09:08 | HHI.DS ---
Discharge Summary Admission Date Dec 02, 2016 at 11:36 Discharge Date: Dec 07, 2016 Admitting Diagnosis cellulitis (1) Cellulitis ICD Code: L03.90 Diagnosis: Principal (2) Groin abscess ICD Code: L02.214 Diagnosis: Principal Procedures none Brief History - From Admission 36-year-old male otherwise healthy who presents to the emergency department with a wound on his left groin that started as an abscess 4 days ago and has been increasing in size, constant, associated with pain and discomfort. He denies any fevers or chills. He was seen in the emergency department 2 days ago and had an incision and drainage performed. Cultures at that time grew MRSA. [place] and has fresh and salt water exposure. He's been on Keflex and Bactrim for the past 2 days but he feels like the cellulitis is worsening. Says redness, swelling and pain is increasing progressively. No feevr or chills. He was compliants taking antibiotics and pain meds. CBC/BMP: 12/03/16 0648 12/03/16 0648 Significant Findings Laboratory Tests Test 12/05/16 09:00 Vancomycin Level Trough 17.1 MCG/ML (5.0-10.0) Imaging Last Impressions Lower Extremity Ultrasound 12/06/16 0000 Signed Impressions: Service Date/Time: Tuesday, December 06, 2016 20:49 - CONCLUSION: Diffuse edema in the left groin. No fluid collection. Angel Teresa MD PE at Discharge GENERAL: This is a young male well-nourished, well-developed patient, in no apparent distress. SKIN: Extended edema on left groin extending mid inner thigh improving, warm and painful to palpation. Erythema improving. There is a large induration in the groin with surrounding edema and erythema, no fluctuance. Cool and dry. HEAD: Atraumatic. Normocephalic. No temporal or scalp tenderness. EYES: Pupils equal round and reactive. Extraocular motions intact. No scleral icterus. No injection or drainage. ENT: Nose without bleeding, purulent drainage or septal hematoma. Throat without erythema, tonsillar hypertrophy or exudate. Uvula midline. Airway patent. NECK: Trachea midline. No JVD or lymphadenopathy. Supple, nontender, no meningeal signs. CARDIOVASCULAR: Regular rate and rhythm without murmurs, gallops, or rubs. RESPIRATORY: Clear to auscultation. Breath sounds equal bilaterally. No wheezes , rales, or rhonchi. GASTROINTESTINAL: Abdomen soft, non-tender, nondistended. No hepato-splenomegaly , or palpable masses. No guarding. MUSCULOSKELETAL: Extremities without clubbing, cyanosis, or edema. No joint tenderness, effusion, or edema noted. No calf tenderness. Negative Homans sign bilaterally. NEUROLOGICAL: Awake and alert. Cranial nerves II through XII intact. Motor and sensory grossly within normal limits. Five out of 5 muscle strength in all muscle groups. Normal speech. Pt update on day of discharge Erythema and edema has improved significantly. Still some area of induration in the groin, however improving. US did not show abscess. Afebrile. Plan for DC today t follow up as OP with Dr Valera Hospital Course 36 yo male with cellulitis left inner thigh/groin Worsening cellulitis of the left groin/inner thigh with failed OP treatment with keflex and bactrim. Wound cultures 11/30 with MRSA Repeat wound cultures 12/02 with MRSA Blood Cx 12/02 NTD Continue IV vancomycin. Pharmacy consult for vanco Pain meds per pain scale. Monitor VS Tachycardic on admission, but doesn't meet sepsis criteria. Tachycardia resolved. Still with large induration in the groin area, erythema improving no area of fluctuation. Says he has some drainage from the wound. US doesn;t show abscess. DVT ppx with lovenox Improved, DC home in fairly good condition, to follow up as OP with PCP Dr Valera at the [facility]. patient doesn't have insurance. . Pt Condition on Discharge: Stable Discharge Disposition: Discharge Home Discharge Time: <= 30 minutes Discharge Instructions DIET: Follow Instructions for: As Tolerated, No Restrictions Activities you can perform: Regular-No Restrictions Follow up Referrals: PCP Follow-up - 3-5 Days with Yesika Valera MD New Medications: Clindamycin (Clindamycin) 300 Mg Cap 300 MG PO TID Infection #21 Ref 0 CAP Continued Medications: Tramadol (Tramadol) 50 Mg Tab 50 MG PO Q6H PRN PAIN GREATER THAN 6 #12 Ref 0 TAB Discontinued Medications: Cephalexin (Keflex) 500 Mg Cap 500 MG PO Q6H Infection Days 10 Ref 0 CAP Sulfamethoxazole-Trimethoprim (Bactrim DS) 800-160 Mg Tab 1 TAB PO BID Infection Days 10 Ref 0 TAB Annia Murray MD Dec 07, 2016 09:08
[2016-12-07] MEDS: SODIUM CHLORIDE 0.9% FLUSH 5 ML FLUSH FLUSH SCH (09:52)
== END 2016-12-07 12:52 | disposition home or self-care (01) | DRG 603 ==
LOC: NEPE 08:57 → NEDA 11:36 → N04B 13:36
PROVIDERS: ADMIT Hospitalist; ATTEND Hospitalist
DX: L03.314 Cellulitis of groin (principal); B95.62 Methicillin resistant Staphylococcus aureus infection as the cause of diseases classified elsewhere; Z72.0 Tobacco use
CPT/HCPCS: 76882; 80048; 80053; 80202; 82565; 83605; 85025; 86403; 87040; 87070; 87147; 87186; 96365; J1170; J1650; J3370; J7030; J7050